=== PATIENT | female | born 1970 | race Hispanic/Latino ===

== ENCOUNTER 2017-07-26 10:49 | Outpatient (CLI) | payer OTHER ==
--- NOTE | 2017-07-26 13:21 | Ultrasound Report ---
TARGETED RIGHT BREAST ULTRASOUND: 07/26/17 10:49:00 CLINICAL: Upper outer focal asymmetry on mammogram. COMPARISON: 07/25/17 and 07/07/17 mammograms. FINDINGS: Ultrasound of the upper outer right breast was performedand demonstrated normal fatty and fibroglandular structures. No mass, cyst or shadowing to correlate with the mammographic asymmetry. IMPRESSION: Negative ultrasound and a probably benign mammographic asymmetry. BI-RADS 3 - - Probably Benign RECOMMENDATION: Six month followup right mammogram.
== END 2017-07-26 10:50 | disposition home or self-care (01) ==
LOC: SPVWC 10:49
PROVIDERS: ATTEND Surgery
DX: R92.8 Other abnormal and inconclusive findings on diagnostic imaging of breast (principal)